=== PATIENT | male | born 1950 | race Caucasian/White ===

== ENCOUNTER 2020-08-28 11:09 | Emergency (ER) | payer OTHER ==
[~2020-08-28] VITALS: Ht 185.4 cm; Wt 135.0 kg
[2020-08-28] MEDS ORDERED: VANCOMYCIN PER PHARMACY MC PRN (13:00)
[2020-08-28] MEDS ORDERED: PIP/TAZO PER PHARMACY MC PRN (13:00)
--- NOTE | 2020-08-28 13:33 | PHYS DOC ---
Past History Past Medical History: A-Fib, Anemia, Arthritis, High Cholesterol, Hypertension, Renal Disease, Other Additional Past Medical Histor: LYMPHADEMA, OBESITY Past Surgical History: Other Additional Past Surgical Histo: LEFT SHOULDER 2 MONTHS Alcohol Use: Rarely Adult General Chief Complaint Chief Complaint: ABSCESS HPI HPI Patient is a 70-year-old male presents emergency department via EMS for evaluation of a left shoulder abscess. Patient was transported here [facility]. Patient states that he had a abscess to his left shoulder joint that fractured his left shoulder girdle in May 2020. Patient states that he was on a round of antibiotics, was transported to medical [facility] for rehabilitation, states it became much better and he had no problems. Patient reports that 3 days ago long term staff noticed it was becoming red and more swollen, yesterday he states he carey a capitan grande around the area of redness, contacted the long term physician who recommended he be transported to the emergency department for evaluation today. Patient denies any pain to the shoulder. Patient denies recent fever or chills, body aches, chest pains, shortness of breath, chest or nasal congestion. Patient denies any nausea vomiting or diarrhea. Patient denies any visual changes or headaches. Patient denies any other physical complaints or physical concerns. Review of Systems Review of Systems 14 body systems of review of systems have been reviewed. See HPI for pertinent positives and negative responses, otherwise all other systems are negative, nonpertinent or noncontributory. Current Medications Current Medications Current Medications Medications (Trade) Dose Ordered Sig/Bria Start Time Stop Time Status Last Admin Dose Admin Piperacillin Sod/ Tazobactam Sod (Zosyn Per Pharmacy) 1 each PRN DAILY PRN 08/28/20 13:00 Sodium Chloride 1,000 ml @ 1,000 mls/hr 1X ONCE 08/28/20 13:00 08/28/20 13:59 Vancomycin HCl (Vanco Per Pharmacy) 1 each PRN DAILY PRN 08/28/20 13:00 Vancomycin HCl 2 gm/Sodium Chloride 500 ml @ 250 mls/hr 1X ONCE 08/28/20 13:30 08/28/20 15:29 Allergies Allergies Allergies Coded Allergies Type Severity Reaction Last Updated Verified No Known Drug Allergies 08/28/20 No Physical Exam Physical Exam Constitutional: Well developed, well nourished, no acute distress, non-toxic appearance. 70-year-old male in no apparent distress. HENT: Normocephalic, atraumatic, bilateral external ears normal, oropharynx moist, no oral exudates, nose normal. Eyes: PERRLA, EOMI, conjunctiva normal, no discharge. Neck: Normal range of motion, no tenderness, supple, no stridor. Cardiovascular:Heart rate regular rhythm, no murmur, heart sounds S1-S2 no auscultation Lungs & Thorax: Bilateral breath sounds clear to auscultation, no adventitious lung sounds appreciated. Abdomen: Bowel sounds normal, soft, no tenderness, no masses, no pulsatile masses. Skin: Warm, dry, no erythema, no rash. See extremity note. Back: No tenderness, no CVA tenderness. Extremities: No tenderness, no cyanosis, no clubbing, ROM intact, no edema. Except for left shoulder, superior aspect left shoulder has irregular border superficial skin lesion without purulent drainage measuring 3 cm x 4 cm, poorly poorly demarcated borders of induration and erythema, inflammation around lesion measuring 12 cm in diameter. Patient has lymphedema of the left upper extremity, abscess fluctuant, no central punctum appreciated. Distal cap refill less than 2 seconds, 2+ radial pulses. No pain elicited with passive range of motion. Patient states it does hurt a little when the abscess is palpated. Neurologic: Alert and oriented X 3, normal motor function, normal sensory function, no focal deficits noted. Psychologic: Affect normal, judgement normal, mood normal. Current Patient Data Vital Signs Vital Signs Date Time Temp Pulse Resp B/P (MAP) Pulse Ox O2 Delivery O2 Flow Rate FiO2 08/28/20 11:30 88 20 87/44 (58) 99 Room Air 08/28/20 11:10 98.0 EKG EKG [] Radiology/Procedures Radiology/Procedures [] Heart Score C/O Chest Pain: No Risk Factors: Risk Factors: DM, Current or recent (<one month) smoker, HTN, HLP, family history of CAD, obesity. Risk Scores: Risk Factors: DM, Current or recent (<one month) smoker, HTN, HLP, family history of CAD, obesity. Course & Med Decision Making Course & Med Decision Making Pertinent Labs and Imaging studies reviewed. (See chart for details) 70-year-old male, vital signs reviewed, presents emergency department for evaluation of left shoulder abscess/infection. Physical examination concerning for possible abscess, discussed case with ED attending Dr. Olea who examined the patient at bedside with myself. Discussed with patient need to start IV antibiotics, start a septic work-up, transfer to [facility] for further evaluation of abscess/shoulder infectious process. Patient gave verbal understanding of ED plan of care and is amendable to admission to [facility]. Patient's sodium 129, chloride 93, will start a second liter normal saline at 75 cc/h. Vancomycin IV and Zosyn IV were ordered and started in the ED today. Called and discussed patient case with inpatient management Dr. Jessica who agreed to accept patient for full admission to [facility] with the information he was given by me. Patient is amendable to admission to [facility]. Transfer forms/EMTALA forms were reviewed and signed by ED attending physician Dr. Olea. Patient was admitted to [facility], pending EMS transport at this time. Dragon Disclaimer Dragon Disclaimer This electronic medical record was generated, in whole or in part, using a voice recognition dictation system. Departure Departure: Impression: Primary Impression: Abscess of left shoulder Additional Impressions: Dehydration Chronic kidney disease Disposition: 02 DC/TRF OTHER SHORT TERM HOS (Patient admitted to [facility] MedSurg unit to inpatient management Dr. Jessica) Condition: GUARDED Referrals: RIMMA FONSECA MD (PCP) Problem Qualifiers Additional Impressions: Chronic kidney disease Chronic kidney disease stage: unspecified stage Qualified Codes: N18.9 - Chronic kidney disease, unspecified ABHILASH MORA APRN Aug 28, 2020 13:33
[2020-08-28] MEDS: IV NORMAL SALINE 1,000ML 1,000 ML IV ONE ×2 (13:36→16:20)
[2020-08-28] MEDS: VANCOMYCIN 2 GM in IV NORMAL SALINE 500ML 500 ML IV ONE (13:41)
[2020-08-28 13:53] LABS: BASO % 1 % (0-3); EOS # 0.2 x10^3/uL (0.0-0.7); EOS % 2 % (0-3); HEMATOCRIT 28.4 % (39.0-53.0); HEMOGLOBIN 9.3 g/dL (13.0-17.5); LYMPH # 0.5 x10^3/uL (1.0-4.8); LYMPH % 5 % (24-48); MEAN CORPUSCULAR HEMOGLOBIN 28 pg (25-35); MEAN CORPUSCULAR HGB CONC 33 g/dL (31-37); MEAN CORPUSCULAR VOLUME 84 fL (79-100); MONO # 1.2 x10^3/uL (0.0-1.1); MONO % 14 % (0-9); NEUT # 7.1 x10^3uL (1.8-7.7); NEUT % 79 % (31-73); PLATELET COUNT 284 x10^3/uL (140-400); RED BLOOD COUNT 3.37 x10^6/uL (4.30-5.70); RED CELL DISTRIBUTION WIDTH 15.1 % (11.5-14.5)
--- NOTE | 2020-08-28 14:03 | RAD ---
EXAM: XR CHEST 1V 08/28/2020 1:02 PM CLINICAL INDICATION: Septic workup COMPARISON: None available TECHNIQUE: AP upright view the chest FINDINGS: The heart and mediastinum are normal. Lungs are well-expanded and clear. No consolidatio n, pleural effusion, or pneumothorax. Pulmonary vascularity is normal. The thoracic skeleton is int act. IMPRESSION: Normal chest radiograph. Electronically signed by: Franca Wilde MD (08/28/2020 2:00 PM) [id number]
[2020-08-28 14:04] LABS: CALCIUM 9.1 mg/dL (8.5-10.1); CREATININE 1.4 mg/dL (0.7-1.3); GFR 49.8; POTASSIUM 4.4 mmol/L (3.5-5.1)
[2020-08-28 14:09] LABS: ALBUMIN/GLOBULIN RATIO 0.4 (1.0-1.7); TOTAL BILIRUBIN 0.5 mg/dL (0.2-1.0); TOTAL PROTEIN 6.9 g/dL (6.4-8.2)
[2020-08-28] MEDS ORDERED: PIPERACILLIN/TAZOBACTAM 4.5 GM in IV NORMAL SALINE 50ML 50 ML IV SCH (15:00)
[2020-08-28] MEDS ORDERED: IV NORMAL SALINE 50ML 50 ML ONE (15:25)
[2020-08-28] MEDS ORDERED: PIPERACILLIN/TAZOBACTAM 4.5 GM VIAL IV ONE (15:25)
[2020-08-28] MEDS: PIPERACILLIN/TAZOBACTAM 4.5 GM in IV NORMAL SALINE 50ML 50 ML IV SCH (16:22)
[2020-08-28 16:44] VITALS: BP 109/58
[2020-08-28 18:05] LABS: % EOS 5 % (0-5); % LYMPHS 4 % (24-48); % MONOS 7 % (0-10); % SEGS 84 % (35-66); PLT ESTIMATE ADEQUATE (ADEQUATE)
== END 2020-08-28 17:06 | disposition short-term general hospital (02) ==
LOC: ER 11:09
DX: L02.414 Cutaneous abscess of left upper limb (principal); E86.0 Dehydration; I12.9 Hypertensive chronic kidney disease with stage 1 through stage 4 chronic kidney disease, or unspecified chronic kidney disease; N18.9 Chronic kidney disease, unspecified
CPT/HCPCS: 36415; 71045; 80053; 83605; 85007; 85025; 86141; 87040; 96365; 96366; 96367; 99285; J2543; J3370; J7030; J7040; 87205